=== PATIENT | male | born 1975 | race Caucasian/White ===

== ENCOUNTER 2022-02-21 23:53 | Emergency (ER) | payer OTHER ==
[~2022-02-21] VITALS: Ht 167.6 cm; Wt 85.7 kg
[2022-02-22 00:22] VITALS: BP 124/75
--- NOTE | 2022-02-22 00:23 | NUR ---
PT BIBSELF C/O BACK PAIN, ERNANDEZ, N/V AND FEVER FOR THE PAST 3 DAYS. PT A/O X 4, RR EVEN AND UNLABORED NO SOB NOTED. PT TO ER BED 10. PT CONNECTED TO MONITORS.
[2022-02-22] MEDS ORDERED: KETOROLAC TROMETHAMINE INJ 30 MG/ML VIAL IM ONE (00:30)
[2022-02-22] MEDS ORDERED: CYCLOBENZAPRINE 10 MG TABLET PO ONE (00:30)
[2022-02-22] MEDS ORDERED: CYCLOBENZAPRINE 10 MG TABLET ONE (00:34)
[2022-02-22] MEDS ORDERED: KETOROLAC TROMETHAMINE INJ 30 MG/ML VIAL ONE (00:34)
--- NOTE | 2022-02-22 00:44 | NUR ---
[employer] AGENCY MANAGER AT BEDSIDE FOR BLOOD DRAW.
--- NOTE | 2022-02-22 00:44 | NUR ---
COVID SWAB COLLECTED AND SENT TO LAB.
[2022-02-22 01:00] LABS: BASOPHILS % (AUTO) 0.3 % (0.0-2.0); HEMATOCRIT 38 % (39-51); HEMOGLOBIN 12.7 g/dL (13.5-17.5); LYMPHOCYTES # (AUTO) 1.2 K/uL (0.8-4.8); LYMPHOCYTES % (AUTO) 18.3 % (20.0-44.0); MEAN CORPUSCULAR HGB CONC 34 g/dl (31.0-36.0); MEAN CORPUSCULAR VOLUME 88 fL (80-96); MONOCYTES # (AUTO) 0.7 K/uL (0.1-1.30); NEUTROPHILS # (AUTO) 4.6 K/uL (1.8-8.9); NEUTROPHILS % (AUTO) 70.4 % (43.0-81.0); PLATELET COUNT (AUTO) 238 K/uL (150-450); RED BLOOD CELL COUNT(AUTO) 4.32 MIL/uL (4.5-6.0); WHITE BLOOD COUNT (AUTO) 6.5 K/uL (4.3-11.0)
[2022-02-22 01:02] LABS: BILIRUBIN,URINE NEGATIVE (NEGATIVE); COLOR,URINE YELLOW (YELLOW); LEUKOCYTE ESTERASE ,URINE NEGATIVE (NEGATIVE); NITRITE, URINE NEGATIVE (NEGATIVE); PH,URINE 5.5 (5.0-8.0); PROTEIN,URINE NEGATIVE (NEGATIVE); UGLUCOSE NEGATIVE (NEGATIVE); UROBILINOGEN,URINE 0.2 EU/dL (0.2)
--- NOTE | 2022-02-22 01:08 | NUR ---
URINE SENT TO LAB
[2022-02-22 01:09] LABS: CALCIUM, SERUM 8.6 mg/dL (8.5-10.1); CARBON DIOXIDE 26 mmol/L (21-32); CHLORIDE 99 mmol/L (98-107); CREATININE 0.9 mg/dL (0.6-1.3); GLUCOSE 105 mg/dL (74-106); POTASSIUM 3.8 mmol/L (3.5-5.1); SODIUM SERUM 132 mmol/L (136-145); UREA NITROGEN, BLOOD 14 mg/dL (7-18)
[2022-02-22 01:15] LABS: ALANINE AMINOTRANSFERASE 28 U/L (12-78); ALBUMIN 3.7 g/dL (3.4-5.0); ALCOHOL, BLOOD < 3 mg/dL (0-0); ALKALINE PHOSPHATASE 55 U/L (46-116); ASPARTATE AMINOTRANSFERASE 22 U/L (15-37); BILIRUBIN,DIRECT 0.1 mg/dL (0.0-0.2); BILIRUBIN,TOTAL 0.5 mg/dL (0.2-1.0); TOTAL PROTEIN, SERUM 7.3 g/dL (6.4-8.2)
--- NOTE | 2022-02-22 01:28 | NUR ---
CALL FROM LAB +COVID
--- NOTE | 2022-02-22 01:56 | NUR ---
Patient discharged to home in stable condition. Written and verbal after care instructions given. Patient verbalizes understanding of instruction.
== END 2022-02-22 01:57 | disposition home or self-care (01) ==
LOC: ER 02-22 00:20
DX: U07.1 COVID-19 (principal); G89.29 Other chronic pain; M54.50 Low back pain, unspecified
CPT/HCPCS: 99283; 96372; 85025; 80048; 80076; 81003; 36415; 87426; 80320; 80307; J1885; C9803; G0480

== ENCOUNTER 2023-03-07 16:49 | Emergency (ER) | payer OTHER ==
[~2023-03-07] VITALS: Ht 167.6 cm; Wt 76.7 kg
[2023-03-07] MEDS ORDERED: LORAZEPAM INJ 2 MG/ML VIAL ONE (17:14)
[2023-03-07 17:18] LABS: BASOPHILS # (AUTO) 0.1 K/uL (0.0-0.2); BASOPHILS % (AUTO) 0.6 % (0.0-2.0); EOSINOPHILS # (AUTO) 0.1 K/uL (0.0-0.7); EOSINOPHILS % (AUTO) 1.2 % (0.0-6.0); HEMATOCRIT 40 % (39-51); HEMOGLOBIN 13.2 g/dL (13.5-17.5); LYMPHOCYTES # (AUTO) 2.9 K/uL (0.8-4.8); LYMPHOCYTES % (AUTO) 33.8 % (20.0-44.0); MEAN CORPUSCULAR HEMOGLOBIN 30 PG (26.0-33.0); MEAN CORPUSCULAR HGB CONC 34 g/dl (31.0-36.0); MEAN CORPUSCULAR VOLUME 90 fL (80-96); MONOCYTES # (AUTO) 0.7 K/uL (0.1-1.30); MONOCYTES % (AUTO) 8.5 % (2.0-12.0); NEUTROPHILS # (AUTO) 4.8 K/uL (1.8-8.9); NEUTROPHILS % (AUTO) 55.9 % (43.0-81.0); PLATELET COUNT (AUTO) 283 K/uL (150-450); RED CELL DISTRIBUTION WIDTH 12.9 % (11.5-15.0); WHITE BLOOD COUNT (AUTO) 8.6 K/uL (4.3-11.0)
[2023-03-07] MEDS ORDERED: LORAZEPAM INJ 2 MG/ML VIAL IV ONE (17:30)
[2023-03-07 17:31] LABS: INR 0.92 (0.91-1.10); PROTHROMBIN TIME 9.8 SECS (9.2-11.1)
[2023-03-07 17:43] LABS: ALANINE AMINOTRANSFERASE 30 U/L (12-78); ALBUMIN 3.8 g/dL (3.4-5.0); ALKALINE PHOSPHATASE 71 U/L (46-116); ASPARTATE AMINOTRANSFERASE 16 U/L (15-37); BILIRUBIN,DIRECT 0.1 mg/dL (0.0-0.2); BILIRUBIN,TOTAL 0.3 mg/dL (0.2-1.0); CALCIUM, SERUM 8.8 mg/dL (8.5-10.1); CARBON DIOXIDE 28 mmol/L (21-32); CHLORIDE 102 mmol/L (98-107); GLUCOSE 108 mg/dL (74-106); POTASSIUM 3.4 mmol/L (3.5-5.1); SODIUM SERUM 138 mmol/L (136-145); UREA NITROGEN, BLOOD 17 mg/dL (7-18)
[2023-03-07 17:44] LABS: TOTAL PROTEIN, SERUM 7.3 g/dL (6.4-8.2)
[2023-03-07 17:58] LABS: CREATININE 0.9 mg/dL (0.6-1.3)
[2023-03-07 19:54] VITALS: BP 124/76; TEMP 98.1; O2SAT 97
== END 2023-03-07 19:54 | disposition home or self-care (01) ==
LOC: ER 16:51
DX: F41.0 Panic disorder [episodic paroxysmal anxiety] (principal); R07.89 Other chest pain; R51.9 Headache, unspecified
CPT/HCPCS: 99285; 96374; 70450; 71045; 93005; 85025; 80048; 80076; 36415; 84484; 85730; 83880; J2060

== ENCOUNTER 2023-11-29 22:15 | Emergency (ER) | payer OTHER ==
[~2023-11-29] VITALS: Ht 172.7 cm; Wt 74.8 kg
[2023-11-29 23:50] LABS: BASOPHILS % (AUTO) 0.5 % (0.0-2.0); EOSINOPHILS # (AUTO) 0.2 K/uL (0.0-0.7); EOSINOPHILS % (AUTO) 1.8 % (0.0-6.0); HEMATOCRIT 38 % (39-51); HEMOGLOBIN 12.8 g/dL (13.5-17.5); LYMPHOCYTES # (AUTO) 3.4 K/uL (0.8-4.8); LYMPHOCYTES % (AUTO) 38.1 % (20.0-44.0); MEAN CORPUSCULAR HEMOGLOBIN 30 PG (26.0-33.0); MEAN CORPUSCULAR HGB CONC 34 g/dl (31.0-36.0); MEAN CORPUSCULAR VOLUME 89 fL (80-96); MONOCYTES # (AUTO) 0.7 K/uL (0.1-1.30); MONOCYTES % (AUTO) 7.6 % (2.0-12.0); NEUTROPHILS # (AUTO) 4.6 K/uL (1.8-8.9); PLATELET COUNT (AUTO) 278 K/uL (150-450); RED BLOOD CELL COUNT(AUTO) 4.24 MIL/uL (4.5-6.0); RED CELL DISTRIBUTION WIDTH 12.8 % (11.5-15.0); WHITE BLOOD COUNT (AUTO) 8.9 K/uL (4.3-11.0)
[2023-11-30 00:03] LABS: ALBUMIN 3.4 g/dL (3.4-5.0); BILIRUBIN,TOTAL 0.5 mg/dL (0.2-1.0); CALCIUM, SERUM 9.1 mg/dL (8.5-10.1); POTASSIUM 3.4 mmol/L (3.5-5.1); TOTAL PROTEIN, SERUM 7.2 g/dL (6.4-8.2)
[2023-11-30] MEDS ORDERED: AMOX-430 PO (00:09)
[2023-11-30] MEDS ORDERED: IBUP-1955 PO (00:09)
[2023-11-30] MEDS ORDERED: ACET-2605 PO (00:09)
[2023-11-30 00:23] VITALS: BP 134/76; TEMP 98.5; O2SAT 98
== END 2023-11-30 00:23 | disposition home or self-care (01) ==
LOC: ER 22:17
DX: H66.93 Otitis media, unspecified, bilateral (principal)
CPT/HCPCS: 36415; 70450-TC; 80053-TC; 85025-TC

== ENCOUNTER 2024-03-10 06:14 | Emergency (ER) | payer OTHER ==
[~2024-03-10] VITALS: Ht 172.7 cm; Wt 77.1 kg
[~2024-03-10 06:14] MED LIST: ACET-2605 PO; AMOX-430 PO; IBUP-1955 PO
[2024-03-10 08:06] LABS: APPEARANCE,URINE SLIGHTLY CLOUDY (CLEAR); BILIRUBIN,URINE NEGATIVE (NEGATIVE); BLOOD, URINE 3+ Ery/uL (NEGATIVE); COLOR,URINE YELLOW (YELLOW); KETONES,URINE NEGATIVE (NEGATIVE); LEUKOCYTE ESTERASE ,URINE 2+ (NEGATIVE); NITRITE, URINE POSITIVE (NEGATIVE); PROTEIN,URINE TRACE mg/dl (NEGATIVE); UGLUCOSE NEGATIVE (NEGATIVE); UROBILINOGEN,URINE 0.2 EU/dL (0.2)
[2024-03-10 08:17] LABS: ADD URINE CULTURE YES; BACTERIA,URINE 1+ /HPF (None Seen); RBC,URINE 21-50 /HPF (0-2); WBC,URINE 21-50 /HPF (0-3)
[2024-03-10 08:18] LABS: MUCUS,URINE Few /LPF (None Seen)
[2024-03-10] MEDS ORDERED: CEFD300C3 PO (08:55)
[2024-03-10] MEDS ORDERED: IBUP-1955 PO (08:55)
[2024-03-10 09:14] VITALS: BP 135/75; TEMP 98; O2SAT 97
== END 2024-03-10 09:14 | disposition home or self-care (01) ==
LOC: ER 06:24
DX: N39.0 Urinary tract infection, site not specified (principal); R31.9 Hematuria, unspecified; R30.9 Painful micturition, unspecified; R30.0 Dysuria; R50.9 Fever, unspecified; M79.10 Myalgia, unspecified site
CPT/HCPCS: 81001; 87086-TC